=== PATIENT | female | born 1960 | race Two or more races ===

== ENCOUNTER 2023-10-14 19:02 | Inpatient (IN) | payer OTHER ==
[~2023-10-14] VITALS: Ht 157.5 cm; Wt 71.2 kg
[2023-10-14] MEDS ORDERED: COZAAR25 MG (19:30)
[2023-10-14] MEDS ORDERED: KATERZIA1 MG/1 ML (19:30)
[2023-10-14] MEDS ORDERED: LEVOTHYROXINE25 MCG (19:30)
[2023-10-14] MEDS ORDERED: NORVASC2.5 M1 (19:30)
[2023-10-14] MEDS ORDERED: 0.9 % SODIUM CHLORIDE 1,000 ML IV SCH (19:45)
[2023-10-14 20:33] LABS: PH,URINE 5.5 (5.0-8.0); URINE APPEARANCE Clear; URINE BILIRRUBIN Negative (NEGATIVE); URINE BLOOD Small; URINE COLOR Yellow; URINE GLUCOSE Negative (NEGATIVE); URINE LEUKOCYTE Negative; URINE NITRATE Positive; URINE PROTEIN Negative (NEGATIVE)
[2023-10-14 20:35] LABS: HEMATOCRIT 38.2 % (36.0-45.00); HEMOGLOBIN 12.9 g/dL (12.0-15.00); MEAN CELL VOLUME 79.9 fL (80.00-100.00); MEAN CORPUSCULAR HGB CONC 33.8 g/dl (32.0-36.0); PLATELET COUNT 218 K/uL (150-450); RED BLOOD COUNT 4.78 M/uL (4.00-6.00); RED CELL DISTRIBUTION WIDTH 14.2 % (11.5-14.5)
[2023-10-14 20:37] LABS: URINE RBC 10.8 uL (0.0-20.8); URINE WBC 16.6 uL (0.0-23.2)
[2023-10-14 20:44] LABS: URINE BACTERIA > 9821.5 uL (0.0-1933)
[2023-10-14 20:53] LABS: CALCIUM 9.9 mg/dL (8.5-10.1); CREATININE SERUM 0.81 mg/dL (0.55-1.02); GFR 71.18; POTASSIUM 3.41 mEq/L (3.5-5.1)
[2023-10-15] MEDS ORDERED: GENTAMICIN SULFATE 40 MG/ML VIAL IV STA (00:42)
[2023-10-15] MEDS ORDERED: LOSARTAN POTASSIUM 100 MG TABLET PO SCH (12:00)
[2023-10-15] MEDS ORDERED: MEROPENEM 500 MG/VIAL VIAL IV SCH (12:24)
[2023-10-15] MEDS ORDERED: RIVAROXABAN 10 MG TAB PO SCH (12:25)
[2023-10-15] MEDS ORDERED: PANTOPRAZOLE SODIUM 40 MG/VIAL VIAL IV PUSH SCH (12:25)
[2023-10-15] MEDS ORDERED: SODIUM CHLORIDE 0.45 % 1,000 ML IV SCH (12:30)
[2023-10-15] MEDS ORDERED: KETOROLAC TROMETHAMINE 30 MG VIAL IV PRN (12:30)
[2023-10-15] MEDS ORDERED: DEXTROSE 50 % IN WATER 0.5 G/ML DISP.SYRIN IV PRN (13:30)
[2023-10-15] MEDS ORDERED: INSULIN LISPRO 1,000 UNIT/10 ML UNITS SUBCUTANEO PRN (13:30)
[2023-10-15] MEDS ORDERED: AMLODIPINE BESYLATE 5 MG TABLET PO SCH (17:00)
[2023-10-15] MEDS ORDERED: SIMVASTATIN 40 MG TABLET PO SCH (17:00)
[2023-10-15] MEDS ORDERED: DEXTROSE 50 % IN WATER 0.5 G/ML VIAL IV PRN (19:30)
[2023-10-16 05:05] LABS: HEMATOCRIT 37.8 % (36.0-45.00); HEMOGLOBIN 12.6 g/dL (12.0-15.00); MEAN CELL VOLUME 79.4 fL (80.00-100.00); MEAN CORPUSCULAR HEMOGLOBIN 26.3 pg (27.00-32.0); MEAN CORPUSCULAR HGB CONC 33.2 g/dl (32.0-36.0); PLATELET COUNT 197 K/uL (150-450); RED BLOOD COUNT 4.76 M/uL (4.00-6.00); RED CELL DISTRIBUTION WIDTH 14.4 % (11.5-14.5)
[2023-10-16 05:27] LABS: INR 1.09; PARTIAL THROMBOPLASTIN TIME 34.8 SECONDS (22.0-34.0); PROTHROMBIN TIME 11.4 SECONDS (9.0-11.5)
[2023-10-16 05:43] LABS: ALBUMIN 3.4 gm/dL (3.4-5.0); BILIRUBIN TOTAL 0.33 mg/dL (0.3-1.2); BILIRUBIN,CONJUGATED 0.12 mg/dL (0.0-0.2); BILIRUBIN,UNCONJUGATED 0.21 mg/dL (0.0-0.6); CALCIUM 8.9 mg/dL (8.5-10.1); CHOL HDL RATIO 3.1 (0-5.0); CREATININE SERUM 0.54 mg/dL (0.55-1.02); GFR 113.66; GLOBULINA 2.9 G/DL (2.4-3.5); POTASSIUM 3.67 mEq/L (3.5-5.1); T4 FREE 1.29 NG/ML (0.76-1.46); TOTAL PROTEIN 6.3 gm/dL (6.4-8.2); TSH 1.45 uIU/mL (0.358-3.74)
[2023-10-16] MEDS ORDERED: LEVOTHYROXINE SODIUM 125 MCG TABLET PO SCH (06:00)
[2023-10-16 10:31] LABS: URINE APPEARANCE Clear; URINE BILIRRUBIN Negative (NEGATIVE); URINE BLOOD Trace; URINE COLOR Yellow; URINE GLUCOSE Negative (NEGATIVE); URINE LEUKOCYTE Negative; URINE NITRATE Negative; URINE PROTEIN Negative (NEGATIVE)
[2023-10-16 10:36] LABS: URINE BACTERIA 188.9 uL (0.0-1933); URINE RBC 39.8 uL (0.0-20.8); URINE WBC 10.5 uL (0.0-23.2)
[2023-10-17 17:04] LABS: URINE APPEARANCE Clear; URINE BILIRRUBIN Negative (NEGATIVE); URINE BLOOD Negative; URINE COLOR Yellow; URINE GLUCOSE Negative (NEGATIVE); URINE LEUKOCYTE Negative; URINE NITRATE Negative; URINE PROTEIN Negative (NEGATIVE)
[2023-10-17 17:07] LABS: URINE RBC 27.1 uL (0.0-20.8)
[2023-10-17 17:09] LABS: URINE WBC 1.2 uL (0.0-23.2)
== END 2023-10-18 11:45 | disposition home or self-care (01) | DRG 690 ==
LOC: ER 19:03 → SEC-K 10-15 13:40 → MEDI 10-15 13:40
PROVIDERS: Emergency Medicine; Internal Medicine Infectious Disease; ADMIT Internal Medicine; ATTEND Internal Medicine
DX: N39.0 Urinary tract infection, site not specified (principal); Z16.12 Extended spectrum beta lactamase (ESBL) resistance; B96.20 Unspecified Escherichia coli [E. coli] as the cause of diseases classified elsewhere; I10 Essential (primary) hypertension; E78.5 Hyperlipidemia, unspecified; E03.9 Hypothyroidism, unspecified; R31.9 Hematuria, unspecified

== ENCOUNTER 2024-01-24 11:53 | Emergency (ER) | payer OTHER ==
[~2024-01-24] VITALS: Ht 157.5 cm; Wt 68.9 kg
[~2024-01-24 11:53] MED LIST: COZAAR25 MG; KATERZIA1 MG/1 ML; LEVOTHYROXINE25 MCG; NORVASC2.5 M1
[2024-01-24] MEDS ORDERED: SIMVASTATIN40 MG PO (12:01)
[2024-01-24] MEDS ORDERED: JANUVIA100 MG PO (12:01)
[2024-01-24 12:03] VITALS: BP 123/79; O2SAT 95
[2024-01-24] MEDS ORDERED: 0.9 % SODIUM CHLORIDE 1,000 ML IV SCH (12:30)
[2024-01-24] MEDS ORDERED: TAMSULOSIN HCL 0.4 MG CAP PO ONE (12:30)
[2024-01-24] MEDS ORDERED: MEPERIDINE HCL/PF 25 MG/ML VIAL IV ONE (12:30)
[2024-01-24 13:20] LABS: HEMATOCRIT 39.2 % (36.0-45.00); HEMOGLOBIN 13.1 g/dL (12.0-15.00); MEAN CELL VOLUME 79.4 fL (80.00-100.00); MEAN CORPUSCULAR HEMOGLOBIN 26.5 pg (27.00-32.0); MEAN CORPUSCULAR HGB CONC 33.4 g/dl (32.0-36.0); PLATELET COUNT 210 K/uL (150-450); RED BLOOD COUNT 4.94 M/uL (4.00-6.00); RED CELL DISTRIBUTION WIDTH 15.2 % (11.5-14.5)
[2024-01-24 13:29] LABS: CALCIUM 9.6 mg/dL (8.5-10.1); CREATININE SERUM 0.67 mg/dL (0.55-1.02); GFR 88.61; POTASSIUM 4.02 mEq/L (3.5-5.1)
[2024-01-24 13:31] LABS: PH,URINE 7.5 (5.0-8.0); URINE APPEARANCE Clear; URINE BILIRRUBIN Negative (NEGATIVE); URINE BLOOD Moderate; URINE COLOR Yellow; URINE GLUCOSE Negative (NEGATIVE); URINE KETONE Negative (NEGATIVE); URINE LEUKOCYTE Negative; URINE NITRATE Negative; URINE PROTEIN Negative (NEGATIVE); URINE UROBILINOGEN 0.2 E.U./dl
[2024-01-24 13:32] LABS: URINE BACTERIA 254.4 uL (0.0-1933); URINE EPITHELIAL CELLS 25.1 uL (0.0-38.8); URINE WBC 6.9 uL (0.0-23.2)
[2024-01-24 13:42] LABS: URINE CAST 0.61 uL (0.0-1.40)
== END 2024-01-24 16:09 | disposition home or self-care (01) ==
LOC: ER 11:55
PROVIDERS: Emergency Medicine
DX: R10.9 Unspecified abdominal pain (principal); I10 Essential (primary) hypertension; E11.9 Type 2 diabetes mellitus without complications; Z88.0 Allergy status to penicillin